=== PATIENT | female | born 1980 | race African-American/Black ===

== ENCOUNTER 2018-02-01 15:47 | Emergency (ER) | payer SELFPAY ==
[~2018-02-01] VITALS: Ht 154.9 cm; Wt 66.2 kg
--- NOTE | 2018-02-01 17:01 | Diagnostic Imaging Report ---
EXAMINATION: ANKLE 3VIEW LT - [facility] 02/01/2018 4:30 PM COMPARISON: None INDICATION: Left ankle injury. History of surgery DISCUSSION: 3 views of the left ankle The bones are demineralized. Two surgical screws are present in the talus. No acute fracture or dislocation. A well-corticated ossicle distal to the medial malleolus is likely related to old trauma. Small calcaneal heel spur Degenerative changes of the subtalar joint and at the midfoot Mild soft tissue swelling about the left ankle. IMPRESSION: Degenerative and postsurgical changes as above, but no acute radiographic abnormality of the left ankle. Ezequiel Lehman MD Signed by: Dr. Ezequiel Lehman M.D. on 02/01/2018 4:57 PM
[2018-02-01 17:18] VITALS: BP 142/77
== END 2018-02-01 17:20 | disposition home or self-care (01) ==
LOC: FSED 15:47
DX: S93.492A Sprain of other ligament of left ankle, initial encounter (principal); W22.09XA Striking against other stationary object, initial encounter; Y92.003 Bedroom of unspecified non-institutional (private) residence as the place of occurrence of the external cause
CPT/HCPCS: 99283